=== PATIENT | female | born 1960 | race Caucasian/White ===

== ENCOUNTER → 2018-03-11 16:39 | Outpatient (CLI) | payer BC | END | disposition home or self-care (01) | LOC: D.MRI 16:39 | DX: G89.29 Other chronic pain (principal) ==

== ENCOUNTER 2019-12-16 19:00 | Outpatient (CLI) | payer BC | END 2019-12-16 23:59 | disposition home or self-care (01) | LOC: D.MAMMO 19:00 | PROVIDERS: ATTEND Nurse Practitioner Family | DX: Z12.31 Encounter for screening mammogram for malignant neoplasm of breast (principal) ==

== ENCOUNTER 2020-01-05 15:00 | Outpatient (CLI) | payer BC | END 2020-01-05 16:00 | disposition home or self-care (01) | LOC: D.MAMMO 15:00 | PROVIDERS: ATTEND Nurse Practitioner Family | DX: R92.8 Other abnormal and inconclusive findings on diagnostic imaging of breast (principal) ==